=== PATIENT | female | born 1965 | race Caucasian/White ===

== ENCOUNTER 2024-01-30 15:24 | Emergency (ER) | payer BC, SELFPAY ==
[2024-01-30] VITALS (17 sets, daily range): BP systolic 91–223; BP diastolic 50–107; BMI 51.7
[2024-01-30] MEDS: TORADOL 15 MG IV (18:40)
[2024-01-30] MEDS: DILAUDID 1 MG IV (18:42)
--- NOTE | 2024-01-30 19:13 | ED.GENMED ---
History of Present Illness
<Ishan Raines Jr., PA-C - Last Filed: 01/31/24 00:19>
General
Chief Complaint: Musculo-Skeletal Complaint
Source: patient
Exam Limitations: none
Time Seen by Provider: 01/30/24 18:01
Nursing documentation reviewed up to this point in time: agreed with
Travel History
Have you had any contact with someone who has COVID-19?: No
Do you have any symptoms of coronavirus? Fever > 100 degrees, chills, cough, shortness of breath, sore throat, loss of taste or smell, muscle aches, or headache?: No
History of Present Illness
History of Present Illness:
58-year-old female with no significant past medical history presenting to the emergency department today with concerns of a distal radius fracture that occurred after she tripped and fell at a friend's house prior to arrival. Went to the urgent was
found to have a significant displaced distal radius fracture and also right hand she was splinted for the rleft hand but after discussion with Ortho the request better alignment prior to follow. Patient sent to the ER for this.
Review of Systems
<Ishan Raines Jr., PA-C - Last Filed: 01/31/24 00:19>
Review of Systems
Allergies reviewed?: Yes
All Other Systems: ROS reviewed and negative except as documented in HPI and ROS
Phy Exam
<Ishan Raines Jr., PA-C - Last Filed: 01/31/24 00:19>
Physical Exam
Physical Exam:
GENERAL: Alert , in no apparent distress
EYE: pupils equal and reactive
NECK: Supple, no significant adenopathy.
ENT: o/p clr, mmm.
CARDIAC: Regular rate and rhythm .
LUNGS: Clear breath sounds bilaterally, no acute respiratory distress, no wheezes/rales/rhonchi
ABDOMEN: Soft, without focal tenderness, no r/g, no cvat
NEUROLOGICAL: Alert and oriented, no focal neuro deficits
SKIN: Warm and dry, skin intact.
MUSCULOSKELETAL: Significant swelling tenderness palpation to the left-sided forearm and wrist able to relaster but does have increased discomfort to the wrist when doing so. No numbness or weakness distally good range of motion no breaks in the skin.
Splint in place to the right hand
PSYCH: Normal and appropriate interaction.
Course
<Ishan Raines Jr., PA-C - Last Filed: 01/31/24 00:19>
Orders/Labs/Results
Orders:
Orders
01/30/24 18:13
HYDROmorphone [Dilaudid] 1 mg IV NOW STA
Ketorolac [Toradol] 15 mg IV NOW STA
01/30/24 19:47
CR Wrist - Left Min 3 Views Urgent
Comment:
Reason For Exam: left wrist pain
01/30/24 20:30
CR Wrist - Left Min 2 Views Urgent
Reason For Exam: repeat after reduction
01/30/24 22:03
ASA Classification Routine
Propofol [Diprivan] 100 mg IV NOW STA
01/30/24 22:29
0.9% Sodium Chloride 1000 ml [Nss] 1,000 ml IV BOLUS
01/30/24 23:08
Wrist, Left 2 Views CR [CR Wrist - Left Min 2 Views] Urgent
Comment:
Reason For Exam: reset wrist
01/30/24 23:19
HYDROmorphone [Dilaudid] 0.5 mg IV NOW STA
Vital Signs
Initial and Last Documented VS:
Initial Vital Signs
Temp Pulse Resp BP Pulse Ox
98.7 F 96 18 223/107 97
01/30/24 15:33 01/30/24 15:33 01/30/24 15:33 01/30/24 15:33 01/30/24 15:33
Last Documented Vital Signs
Temp Pulse Resp BP Pulse Ox
98 F 70 16 108/85 96
01/30/24 23:02 01/30/24 23:54 01/30/24 23:54 01/30/24 23:54 01/30/24 23:13
<Rahul NoahMarco Antonio Glasgow, - Last Filed: 01/30/24 23:23>
Orders/Labs/Results
Orders:
Orders
01/30/24 18:13
HYDROmorphone [Dilaudid] 1 mg IV NOW STA
Ketorolac [Toradol] 15 mg IV NOW STA
01/30/24 19:47
CR Wrist - Left Min 3 Views Urgent
Comment:
Reason For Exam: left wrist pain
01/30/24 20:30
CR Wrist - Left Min 2 Views Urgent
Reason For Exam: repeat after reduction
01/30/24 22:03
ASA Classification Routine
Propofol [Diprivan] 100 mg IV NOW STA
01/30/24 22:29
0.9% Sodium Chloride 1000 ml [Nss] 1,000 ml IV BOLUS
01/30/24 23:08
Wrist, Left 2 Views CR [CR Wrist - Left Min 2 Views] Urgent
Comment:
Reason For Exam: reset wrist
01/30/24 23:19
HYDROmorphone [Dilaudid] 0.5 mg IV NOW STA
Vital Signs
Initial and Last Documented VS:
Initial Vital Signs
Temp Pulse Resp BP Pulse Ox
98.7 F 96 18 223/107 97
01/30/24 15:33 01/30/24 15:33 01/30/24 15:33 01/30/24 15:33 01/30/24 15:33
Last Documented Vital Signs
Temp Pulse Resp BP Pulse Ox
98 F 70 16 108/85 96
01/30/24 23:02 01/30/24 23:54 01/30/24 23:54 01/30/24 23:54 01/30/24 23:13
Procedures
<Ishan Raines Jr., PA-C - Last Filed: 01/31/24 00:19>
Moderate Sedation
ASA Risk Score: Class I
Chart and allergies reviewed: Yes
Consent for anesthesia obtained: Yes
Time out completed (validating right patient & procedure): Yes
History of difficult intubation: No
Airway free of obstruction: Yes
Patient has a gag reflex: Yes
Patient is able to open mouth: Yes
Patient has no dentures: Yes
Patient has no loose teeth: Yes
Medication administered by Provider during Moderate Sedation: IV Propofol (mg) (70)
Total dose administered: 70
Time drug administered: 23:02
Start Time: 23:01
Stop Time: 23:12
Joint/Fracture Reduction
Left Anterior Wrist:
Indication for procedure:: Displacement of distal radius fracture
Procedure completed by: Myself, Dr. Glasgow
Consent form signed: Yes
Joint reduced: with anesthesia sedation
Anesthesia/sedation: Moderate sedation
Injury was: closed
Further treatement: needs further treatment
Post reduction exam: stable
Capillary Refill: normal
Normal distal neurovascular exam?: Yes
Peripheral Pulses: radial (left): 2+
<Ishan Raines Jr., PA-C - Last Filed: 01/31/24 00:19>
MDM/Problems Addressed
MDM/Problems Addressed:
58-year-old female presenting to the emergency department sent in by urgent care with concerns of displaced distal radius fracture requested to be reduced by Ortho. Otherwise will need splinting and follow-up.
First attempt at reduction with a hematoma block and Dilaudid dose patient tolerated well blood still with displacement. This was then reattempted still unsuccessful after repeated x-ray. Patient was then sedated with propofol with good reduction
and adequate alignment. Placed in a splint and will follow-up with orthopedics. Given a sling prior to discharge.
<Ishan Raines Jr., PA-C - Last Filed: 01/31/24 00:19>
*Critical Care Note
Total Time (30-74mins, 75-104mins- exclusive of procedures): Not Applicable
ED Attending Note
<Ishan Raines Jr., PA-C - Last Filed: 01/31/24 00:19>
-
Portions of this chart may have been created with voice recognition software.� Occasional wrong word or��sound alike� substitutions may have occurred due to the inherent limitations of voice recognition software.
<Rahul Glasgow DO - Last Filed: 01/30/24 23:23>
ED Attending Note
Patient seen and examined by attending physician: Yes
I performed the substantive portion of visit, reviewed & personally made and approve the management plan that is documented in note by myself or VALARIE.: Yes
ED Attending Note:
I agree with that note.
Patient fell after tripping. Suffered wrist injury
Physical exam:
Wrist with obvious deformity. Capillary refill intact. Sensation intact.
At had discussed the patient's presentation with orthopedics. They recommend reduction here in the emergency room. Attempts at reduction were made with hematoma block but we were not successful. Ultimate decision to perform procedural sedation.
Patient received 70 mg of propofol. We were able to adequately reduce the fracture with sedation. She tolerated both the sedation and the fracture reduction well.
Discharge Plan
Departure
Patient Disposition: Home (Routine Discharge)
Date of Disposition: 01/31/24
Time of Disposition: 00:01
Patient with high blood pressure during this ER visit?: No
Condition: Good
Covid-19: Not Applicable
Discharge Problem:
Closed fracture of left distal radius
Instructions: Wrist Fracture (DC)
Prescriptions:
New
oxycodone 5 mg capsule
5 mg PO Q8H PRN (Reason: Pain) Qty: 5 0RF
No Action
acetaminophen [Tylenol] 325 mg Tablet
650 mg PO BIDPRN PRN (Reason: mild pain)
Referrals:
Marty Lindsey MD [Active] -
NONE,* [Family Provider] -
Activity Restrictions/Additional Instructions:
You can to the emergency department today with concerns of a displaced distal radius fracture. This was reduced here and splinted. Please splint in place until orthopedic follow-up for further recommendations. Return to the emergency department
for any worsening, new or concerning symptoms.
Interventions
Interventions:
*Risk Screen - Suicide Last Done: 01/30/24 15:33
*General Assessment Last Done: 01/30/24 15:33
*Neglect/Abuse Screening Last Done: 01/30/24 15:33
*ED COVID-19 Vaccine History Last Done: 01/30/24 18:25
ED-Musculoskeletal Assessment Last Done: 01/30/24 18:25
Discharge Date and Time
Print Language: LUXEMBOURGER
[2024-01-30] MEDS: NSS 1000 IV (22:29)
--- NOTE | 2024-01-30 23:00 | EDRN ---
2301: Time out performed.
VS 130/83
HR 77
RR 13
96%
etCO2 28
2302
70 mg prop administered
Pt vitals stable
reduction performed pt tolerated procedure.
2306 pt alert and oriented speaking to staff while cast is placed.
2311 Xray arrived and performed bedside xray to confirm successful reduction. Pt reports mild discomfort.
[2024-01-30] MEDS: DIPRIVAN 100 MG IV (23:02)
[2024-01-30] MEDS: DILAUDID 0.5 MG IV (23:29)
[2024-01-31] VITALS: BP 140/87
[2024-01-31 00:39] VITALS: BP 134/80
[2024-01-31 00:57] VITALS: BP 134/80
== END 2024-01-31 01:00 | disposition home or self-care (01) ==
LOC: EMR 15:24
PROVIDERS: EMERGENCY PHYSICIAN Emergency Medicine
DX: S52.592A Other fractures of lower end of left radius, initial encounter for closed fracture (principal); W01.0XXA Fall on same level from slipping, tripping and stumbling without subsequent striking against object, initial encounter
CPT/HCPCS: 25605; 99285; 96374; 96375; 96361; 96376; 99152; 73100; 73110

== ENCOUNTER 2024-02-04 06:38 | Day surgery (SDC) | payer BC, SELFPAY ==
[2024-02-04] VITALS (9 sets, daily range): BP systolic 139–174; BP diastolic 66–96; BMI 51.8
[2024-02-04] MEDS: NORMOSOL-R 1000 IV (11:30)
[2024-02-04] MEDS: TYLENOL 1000 MG PO (11:41)
[2024-02-04] MEDS: CELEBREX 200 MG PO (11:43)
== END 2024-02-04 16:34 | disposition home or self-care (01) ==
LOC: SDS 06:38
PROVIDERS: ATTENDING PHYSICIAN Orthopaedic Surgery
DX: S52.572A Other intraarticular fracture of lower end of left radius, initial encounter for closed fracture (principal); S62.316A Displaced fracture of base of fifth metacarpal bone, right hand, initial encounter for closed fracture; X58.XXXA Exposure to other specified factors, initial encounter
CPT/HCPCS: 25609; 26615; C1713